=== PATIENT | female | born 1945 | race Caucasian/White ===

== ENCOUNTER 2017-07-02 18:46 | Inpatient (IN) | payer OTHER, MEDICARE, BC ==
[~2017-07-02] VITALS: Ht 175.3 cm; Wt 95.4 kg
[~2017-07-02 18:46] MED LIST: ENAL10TA7 PO; GLUCTAB PO; METO25 PO; NOVOLOGP2 SC; PERC5TAB12 PO; VITA500015 PO; XARE10TA PO
[2017-07-02] MEDS ORDERED: IOHEXOL 350 MG/ML 10 ML VIAL (for RAD DIAG) IVCONTRAST ONE (18:47)
[2017-07-02 19:30] VITALS: BP 160/77; PULSE 78; RESP 18; TEMP 97.2; TEMP 98.2; O2SAT 99
[2017-07-02 19:45] VITALS: O2SAT 98
[2017-07-02] MEDS ORDERED: ceFAZolin 2 GM PREMIX 50 ML IV ONE (19:45)
[2017-07-02] MEDS ORDERED: HYDROmorphone HCL PF 0.5 MG/0.5 ML SYRINGE IV PUSH ONE ×2 (19:45→20:15)
[2017-07-02] MEDS ORDERED: DIPHTH/TETANUS/ACEL PERTUSSIS (BOOSTER) 0.5 ML VIAL/PFS IM ONE (19:45)
[2017-07-02] MEDS ORDERED: ONDANSETRON HCL 4 MG/2 ML VIAL IV PUSH ONE (19:45)
[2017-07-02] MEDS ORDERED: SODIUM CHLORIDE 0.9% FLUSH 10 ML FLUSH IVF PRN (19:45)
[2017-07-02] MEDS ORDERED: SODIUM CHLORID 0.9% 500 ML INJ 500 ML IV ONE (19:45)
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
[2017-07-02 20:08] LABS: I-STAT POTASSIUM 4.7 MMOL/L (3.5-4.9); I-STAT SODIUM 139 MMOL/L (138-146)
[2017-07-02 20:10] LABS: AUTOMATED NEUTROPHIL # 25.2 TH/MM3 (1.8-7.7); BASOPHIL # 0.2 TH/MM3 (0-0.2); BASOPHIL % 0.5 % (0.0-2.0); EOSINOPHIL # 0.1 TH/MM3 (0-0.4); EOSINOPHIL % 0.4 % (0.0-4.0); HEMATOCRIT 37.4 % (35.0-46.0); LYMPH % 9.9 % (9.0-44.0); MEAN CELL VOLUME 86.9 FL (80.0-100.0); MEAN CORPUSCULAR HEMOGLOBIN 28.3 PG (27.0-34.0); MEAN CORPUSCULAR HGB CONC 32.6 % (32.0-36.0); MONO % 6.6 % (0.0-8.0); NEUT % 82.6 % (16.0-70.0); PLATELET COUNT 466 TH/MM3 (150-450); RED CELL DISTRIBUTION WIDTH 14.3 % (11.6-17.2); WHITE BLOOD COUNT 30.5 TH/MM3 (4.0-11.0)
[2017-07-02 20:13] LABS: HEMO FLAGS AUTO DIFF
[2017-07-02 20:25] LABS: ALCOHOL LESS THAN 3 MG/DL (0-5); BETA HCG QUANT LESS THAN 1 MIU/ML (0-5)
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
[2017-07-02 20:41] LABS: PLATELET ESTIMATE SMEAR NORMAL (NORMAL); PLATELET MORPHOLOGY NORMAL (NORMAL); SCAN/DIFF AUTO DIFF CONFIRMED
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
[2017-07-02 21:00] VITALS: BP 223/106; PULSE 112; RESP 20; O2SAT 99
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
[2017-07-02] MEDS ORDERED: SODIUM CHLOR 0.9% 1000 ML INJ 1,000 ML IV SCH (22:36)
[2017-07-02] MEDS ORDERED: BISACODYL 10 MG SUPP RECTAL PRN (22:45)
[2017-07-02] MEDS ORDERED: HYDROmorphone HCL PF 1 MG/ML VIAL IV PUSH PRN ×2 (22:45)
[2017-07-02] MEDS ORDERED: cloNIDine HCL 0.1 MG TAB PO PRN (22:45)
[2017-07-02] MEDS ORDERED: SODIUM CHLORIDE 0.9% FLUSH 10 ML FLUSH IV FLUSH PRN (22:45)
[2017-07-02] MEDS ORDERED: ACETAMINOPHEN 325 MG TAB PO PRN (22:45)
[2017-07-02] MEDS ORDERED: NALOXONE HCL 0.4 MG/ML AMP IV PUSH PRN (22:45)
[2017-07-02] MEDS: HYDROmorphone HCL PF 1 MG/ML VIAL IV PUSH PRN (23:37)
[2017-07-02 23:39] VITALS: BP 200/91; PULSE 107
[2017-07-03] VITALS (10 sets, daily range): BP systolic 122–155; BP diastolic 60–98; PULSE 73–99; RESP 16–18; TEMP 96.7–98.4; O2SAT 93–99
[2017-07-03] MEDS ORDERED: ATOR10TA15 PO (00:54)
[2017-07-03] MEDS ORDERED: METO25TA3 PO (00:54)
[2017-07-03] MEDS ORDERED: NOVOLOGP2 SQ (00:54)
[2017-07-03 01:16] LABS: APTT (PATIENT) 25.9 SEC (24.3-30.1); INTERNATIONAL NORMALIZED RATIO 0.9 RATIO; PROTHROMBIN TIME - PATIENT 10.4 SEC (9.8-11.6)
[2017-07-03] MEDS ORDERED: METOPROLOL TARTRATE 25 MG TAB PO PRN (02:00)
[2017-07-03] MEDS ORDERED: INSULIN HUMAN REGULAR 1,000 UNITS/10 ML VIAL SQ PRN (02:00)
[2017-07-03] MEDS ORDERED: LACTATED RINGER'S 1000 ML IV PRN (02:00)
[2017-07-03] MEDS ORDERED: SODIUM CHLORID 0.9% 500 ML IV PRN (02:00)
[2017-07-03] MEDS ORDERED: CHLORHEXIDINE GLUCONATE 2 % 1 PACK (2 CLOTHS) TOPICAL PRN (02:00)
[2017-07-03] MEDS ORDERED: POVIDONE IODINE 5% (ANTISEPSIS KIT) 4 APPLICATIONS EACH NARE PRN (02:00)
[2017-07-03] MEDS: ONDANSETRON HCL 4 MG/2 ML VIAL IVP PRN ×2 (02:42→07:34)
[2017-07-03] MEDS: HYDROmorphone HCL PF 1 MG/ML VIAL IV PUSH PRN (02:43)
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
[2017-07-03] MEDS ORDERED: TRANEXAMIC ACID IV SCH (08:00)
[2017-07-03] MEDS ORDERED: SODIUM CHLORIDE 0.9% IV SCH (08:00)
[2017-07-03] MEDS ORDERED: HEPARIN SODIUM - SQ 10,000 UNITS/ML VIAL ONE (08:15)
[2017-07-03] MEDS ORDERED: VANCOMYCIN HCL 1000 MG VIAL ONE (08:15)
[2017-07-03] MEDS ORDERED: SODIUM CHLOR 0.9% 250 ML INJ 250 ML ONE (08:16)
[2017-07-03] MEDS ORDERED: GENTAMICIN SULFATE 80 MG/2 ML VIAL ONE (08:16)
[2017-07-03] MEDS: SODIUM CHLORIDE 0.9% FLUSH 10 ML FLUSH IV FLUSH SCH ×2 (09:00→20:27)
[2017-07-03] MEDS: DOCUSATE SODIUM 50 MG/SENNA 8.6 MG TAB PO SCH ×2 (09:00→20:28)
[2017-07-03] MEDS ORDERED: ceFAZolin 2 GM PREMIX 50 ML ONE (09:50)
[2017-07-03] MEDS ORDERED: PROPOFOL 500 MG/50 ML INJ 100 ML ONE (09:56)
[2017-07-03] MEDS ORDERED: BACITRACIN TOP OINT 15 GM TUBE ONE (10:09)
[2017-07-03] MEDS ORDERED: HYDR-3583 PO (11:43)
[2017-07-03] MEDS ORDERED: CALCTAB19 PO (11:43)
[2017-07-03] MEDS ORDERED: WALKER/ADULT/FO1 MIS (11:43)
[2017-07-03] MEDS ORDERED: ERGO1CAP30 PO (11:43)
[2017-07-03] MEDS ORDERED: XARE10TA PO (11:43)
[2017-07-03] MEDS ORDERED: VITA2000 PO (11:43)
[2017-07-03] MEDS ORDERED: WHEEMIS3 (11:43)
[2017-07-03] MEDS ORDERED: ACETAMINOPHEN 1000 MG/100 ML 100 ML IV ONE (12:11)
[2017-07-03] MEDS ORDERED: MORPHINE SULFATE 4 MG/ML INJ IV PUSH PRN (12:15)
[2017-07-03] MEDS ORDERED: NALOXONE HCL 0.4 MG/ML AMP IV PUSH PRN (12:15)
[2017-07-03] MEDS ORDERED: ACETAMINOPHEN/HYDROcodone 325 MG/10 MG TAB PO PRN (12:15)
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
[2017-07-03] MEDS ORDERED: DO NOT ADM ANY ANTICOAGULANT DRUGS PRN (12:35)
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
[2017-07-03] MEDS: LACTATED RINGER'S 1000 ML INJ 1,000 ML IV SCH ×2 (15:00→22:59)
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
[2017-07-03] MEDS ORDERED: ERGOCALCIFEROL (VIT D2) 50,000 UNIT CAP PO SCH (17:00)
[2017-07-03] MEDS: ceFAZolin 2 GM PREMIX 50 ML IV SCH (17:44)
[2017-07-03] MEDS: ATORVASTATIN 10 MG TAB PO SCH (20:27)
[2017-07-03] MEDS: METOPROLOL TARTRATE 25 MG TAB PO SCH (20:28)
[2017-07-03] MEDS: LOW DOSE INSULIN NOVOLOG SUPPLEMENTAL SCALE SQ SCH (20:29)
[2017-07-03] MEDS ORDERED: PLEASE DISCONTINUE PREVIOUS SUPPLEMENTAL SCALE INSULIN ORDERS ONE (20:30)
[2017-07-03] MEDS ORDERED: GLUCAGON 1 MG/ML VIAL OTHER PRN (20:30)
[2017-07-03] MEDS ORDERED: DEXTROSE 50% IN WATER 50 ML VIAL(D50) IV PUSH PRN (20:30)
[2017-07-03] MEDS: LORazepam 2 MG/ML VIAL IV PUSH PRN (22:59)
[2017-07-03] MEDS: VANCOMYCIN INJ 1,000 MG in SODIUM CHLOR 0.9% 250 ML INJ 250 ML IV SCH (22:59)
[2017-07-04] MEDS ORDERED: LISI-519 PO (00:51)
[2017-07-04] MEDS ORDERED: AMLO10TA2 PO (00:57)
[2017-07-04] MEDS: ceFAZolin 2 GM PREMIX 50 ML IV SCH ×3 (02:44→17:41)
[2017-07-04 04:38] VITALS: BP 135/64; PULSE 84; RESP 18; TEMP 98.7; O2SAT 97
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
[2017-07-04 08:00] VITALS: BP 137/66; PULSE 89; RESP 18; TEMP 98.7; O2SAT 96
[2017-07-04 08:26] LABS: HEMATOCRIT 23.9 % (35.0-46.0); MEAN CELL VOLUME 85.6 FL (80.0-100.0); MEAN CORPUSCULAR HEMOGLOBIN 28.9 PG (27.0-34.0); MEAN CORPUSCULAR HGB CONC 33.8 % (32.0-36.0); PLATELET COUNT 303 TH/MM3 (150-450); RED CELL DISTRIBUTION WIDTH 13.6 % (11.6-17.2); REVIEW FLAG FINAL; WHITE BLOOD COUNT 11.8 TH/MM3 (4.0-11.0)
[2017-07-04] MEDS: CHOLECALCIFEROL (VIT D3) 1000 UNIT TAB PO SCH (08:54)
[2017-07-04] MEDS: LOW DOSE INSULIN NOVOLOG SUPPLEMENTAL SCALE SQ SCH ×4 (08:54→20:56)
[2017-07-04] MEDS: SODIUM CHLORIDE 0.9% FLUSH 10 ML FLUSH IV FLUSH SCH ×2 (08:55→20:53)
[2017-07-04] MEDS: METOPROLOL TARTRATE 25 MG TAB PO SCH ×3 (08:55→20:53)
[2017-07-04] MEDS: DOCUSATE SODIUM 50 MG/SENNA 8.6 MG TAB PO SCH ×2 (08:55→20:55)
[2017-07-04 08:59] LABS: BICARBONATE 23.6 MEQ/L (21.0-32.0); POTASSIUM 4.2 MEQ/L (3.5-5.1)
[2017-07-04] MEDS: LORazepam 2 MG/ML VIAL IV PUSH PRN ×2 (09:08→20:55)
[2017-07-04] MEDS: VANCOMYCIN INJ 1,000 MG in SODIUM CHLOR 0.9% 250 ML INJ 250 ML IV SCH ×2 (10:36→23:57)
[2017-07-04 11:43] VITALS: BP 140/69; PULSE 90; RESP 18; TEMP 95.9; O2SAT 94
[2017-07-04] MEDS: ENOXAPARIN SODIUM 30 MG/0.3 ML SYRINGE SQ SCH ×2 (12:13→23:56)
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
[2017-07-04] MEDS ORDERED: oxyCODONE/ACETAMINOPHEN 7.5 MG/325 MG TAB PO PRN (14:00)
[2017-07-04] MEDS ORDERED: oxyCODONE/ACETAMINOPHEN 10 MG/325 MG TAB PO PRN (14:00)
--- NOTE | 2017-07-04 14:29 | EKG ---
Date Performed: 07/02/2017 Time Performed: 23:25:52 PTAGE: 72 years EKG: SINUS TACHYCARDIA LOW QRS VOLTAGE IN PRECORDIAL LEADS POSSIBLE ANTERIOR MYOCARDIAL INFARCTI ON ABNORMAL ECG PREVIOUS TRACING : 01/11/2002 08.41 DOCTOR: Alfonzo Kasper Interpretating Date/Time 07/04/2017 14:21:20
[2017-07-04 15:30] VITALS: BP 147/66; PULSE 100; RESP 16; TEMP 97.6; O2SAT 96
[2017-07-04] MEDS: HYDROmorphone HCL PF 1 MG/ML VIAL IV PUSH PRN (15:51)
[2017-07-04] MEDS: INSULIN HUMAN REGULAR 1,000 UNITS/10 ML VIAL SQ SCH ×2 (17:42→20:56)
[2017-07-04 19:24] VITALS: BP 149/70; PULSE 98; RESP 16; TEMP 97.4; O2SAT 96
[2017-07-04 19:42] VITALS: O2SAT 95
[2017-07-04] MEDS: ATORVASTATIN 10 MG TAB PO SCH (20:53)
[2017-07-04] MEDS: LACTATED RINGER'S 1000 ML INJ 1,000 ML IV SCH (21:31)
[2017-07-05] VITALS: BP 156/87; PULSE 94; RESP 17; TEMP 99.2; O2SAT 93
[2017-07-05] MEDS: ceFAZolin 2 GM PREMIX 50 ML IV SCH ×3 (02:47→16:09)
[2017-07-05] MEDS: LACTATED RINGER'S 1000 ML INJ 1,000 ML IV SCH ×2 (05:25→08:26)
[2017-07-05] MEDS: HYDROmorphone HCL PF 1 MG/ML VIAL IV PUSH PRN ×3 (05:43→19:53)
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
[2017-07-05 08:00] VITALS: BP 154/64; PULSE 95; RESP 20; TEMP 99; O2SAT 96
[2017-07-05] MEDS: SENNOSIDES 8.6 MG TAB PO PRN ×2 (08:19→20:10)
[2017-07-05] MEDS: MAGNESIUM HYDROXIDE SUSP 30 ML CUP PO PRN (08:19)
[2017-07-05] MEDS: METOPROLOL TARTRATE 25 MG TAB PO SCH ×2 (08:19→19:54)
[2017-07-05] MEDS: CHOLECALCIFEROL (VIT D3) 1000 UNIT TAB PO SCH (08:19)
[2017-07-05] MEDS: DOCUSATE SODIUM 50 MG/SENNA 8.6 MG TAB PO SCH ×2 (08:19→19:54)
[2017-07-05] MEDS: SODIUM CHLORIDE 0.9% FLUSH 10 ML FLUSH IV FLUSH SCH ×2 (08:20→19:58)
[2017-07-05] MEDS: ACETAMINOPHEN/HYDROcodone 325 MG/10 MG TAB PO PRN ×3 (08:21→18:43)
[2017-07-05] MEDS: LOW DOSE INSULIN NOVOLOG SUPPLEMENTAL SCALE SQ SCH ×4 (08:27→23:16)
[2017-07-05] MEDS: INSULIN HUMAN REGULAR 1,000 UNITS/10 ML VIAL SQ SCH ×4 (08:28→23:16)
[2017-07-05] MEDS: VANCOMYCIN INJ 1,000 MG in SODIUM CHLOR 0.9% 250 ML INJ 250 ML IV SCH (11:53)
[2017-07-05] MEDS: ONDANSETRON HCL 4 MG/2 ML VIAL IVP PRN ×2 (11:53→17:21)
[2017-07-05 12:00] VITALS: BP 129/58; PULSE 76; RESP 18; TEMP 98.8; O2SAT 94
[2017-07-05] MEDS: ENOXAPARIN SODIUM 30 MG/0.3 ML SYRINGE SQ SCH ×2 (12:04→23:26)
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
[2017-07-05] MEDS ORDERED: CEFUROXIME AXETIL 500 MG TAB PO SCH (12:30)
[2017-07-05] MEDS ORDERED: guaiFENesin SOLUTION 200 MG/10 ML CUP PO PRN (12:30)
[2017-07-05] MEDS: AZITHROMYCIN 250 MG TAB PO SCH (14:05)
[2017-07-05 14:33] VITALS: O2SAT 94
[2017-07-05 16:00] VITALS: BP 142/75; PULSE 84; RESP 18; TEMP 99.4; O2SAT 92
[2017-07-05] MEDS: ATORVASTATIN 10 MG TAB PO SCH (19:54)
[2017-07-05 20:00] VITALS: BP 141/68; PULSE 82; RESP 16; TEMP 99; O2SAT 98
[2017-07-05] MEDS: LACTULOSE SYRUP 20 GM/30 ML CUP PO PRN (20:10)
[2017-07-05] MEDS: LORazepam 2 MG/ML VIAL IV PUSH PRN (23:26)
[2017-07-06] VITALS: BP 139/63; PULSE 84; RESP 17; TEMP 98.6; O2SAT 93
[2017-07-06] MEDS: ceFAZolin 2 GM PREMIX 50 ML IV SCH ×2 (02:56→08:25)
[2017-07-06] MEDS: LACTATED RINGER'S 1000 ML INJ 1,000 ML IV SCH ×2 (03:00→10:23)
[2017-07-06] MEDS: HYDROmorphone HCL PF 1 MG/ML VIAL IV PUSH PRN (03:32)
[2017-07-06 04:00] VITALS: BP 141/64; PULSE 87; RESP 16; TEMP 98.9; O2SAT 96
[2017-07-06 07:35] VITALS: BP 142/68; PULSE 89; RESP 19; TEMP 99.8; O2SAT 97
[2017-07-06] MEDS: CHOLECALCIFEROL (VIT D3) 1000 UNIT TAB PO SCH (08:24)
[2017-07-06] MEDS: DOCUSATE SODIUM 50 MG/SENNA 8.6 MG TAB PO SCH (08:24)
[2017-07-06] MEDS: LACTULOSE SYRUP 20 GM/30 ML CUP PO PRN (08:24)
[2017-07-06] MEDS: SODIUM CHLORIDE 0.9% FLUSH 10 ML FLUSH IV FLUSH SCH (08:24)
[2017-07-06] MEDS: SENNOSIDES 8.6 MG TAB PO PRN (08:24)
[2017-07-06] MEDS: AZITHROMYCIN 250 MG TAB PO SCH (08:24)
[2017-07-06] MEDS: METOPROLOL TARTRATE 25 MG TAB PO SCH (08:24)
[2017-07-06] MEDS: MAGNESIUM HYDROXIDE SUSP 30 ML CUP PO PRN (08:24)
[2017-07-06] MEDS: ACETAMINOPHEN/HYDROcodone 325 MG/10 MG TAB PO PRN ×3 (08:25→16:17)
[2017-07-06] MEDS: INSULIN HUMAN REGULAR 1,000 UNITS/10 ML VIAL SQ SCH ×2 (08:25→13:03)
[2017-07-06] MEDS: LOW DOSE INSULIN NOVOLOG SUPPLEMENTAL SCALE SQ SCH ×2 (08:29→12:00)
[2017-07-06 08:34] LABS: HEMATOCRIT 24.3 % (35.0-46.0); MEAN CORPUSCULAR HEMOGLOBIN 29.8 PG (27.0-34.0); MEAN CORPUSCULAR HGB CONC 34.2 % (32.0-36.0); PLATELET COUNT 336 TH/MM3 (150-450); RED BLOOD COUNT 2.79 MIL/MM3 (4.00-5.30); RED CELL DISTRIBUTION WIDTH 13.7 % (11.6-17.2); REVIEW FLAG FINAL; WHITE BLOOD COUNT 9.9 TH/MM3 (4.0-11.0)
[2017-07-06 09:20] LABS: POTASSIUM 4.5 MEQ/L (3.5-5.1)
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
[2017-07-06] MEDS ORDERED: AZIT250T3 PO (10:54)
[2017-07-06] MEDS: ONDANSETRON HCL 4 MG/2 ML VIAL IVP PRN (10:55)
[2017-07-06 11:40] VITALS: BP 155/79; PULSE 91; RESP 19; TEMP 99.3; O2SAT 95
[2017-07-06 12:18] VITALS: O2SAT 93
[2017-07-06] MEDS: ENOXAPARIN SODIUM 30 MG/0.3 ML SYRINGE SQ SCH (13:03)
== END 2017-07-06 16:45 | DRG 481 ==
LOC: NEPC 18:46 → NEDA 22:10 → N06A 07-03 01:35
PROVIDERS: ADMIT Specialist; ATTEND Specialist
PROC: 2W6PX0Z Traction of Left Upper Leg using Traction Apparatus (ICD-10-PCS; 2017-07-02)
PROC: 0QS504Z Reposition Left Acetabulum with Internal Fixation Device, Open Approach (ICD-10-PCS; 2017-07-03)
PROC: 0QU Lower Bones, Supplement (ICD-10-PCS; 2017-07-03)
PROC: 0SSB0ZZ Reposition Left Hip Joint, Open Approach (ICD-10-PCS; principal; 2017-07-03 09:54)
DX: S32.492A Other specified fracture of left acetabulum, initial encounter for closed fracture (principal); S73.005A Unspecified dislocation of left hip, initial encounter; Z47.89 Encounter for other orthopedic aftercare; V47.1XXA Car passenger injured in collision with fixed or stationary object in nontraffic accident, initial encounter; Y92.410 Unspecified street and highway as the place of occurrence of the external cause; E11.9 Type 2 diabetes mellitus without complications; Z79.84 Long term (current) use of oral hypoglycemic drugs; Z79.4 Long term (current) use of insulin; I10 Essential (primary) hypertension; D62 Acute posthemorrhagic anemia; M17.12 Unilateral primary osteoarthritis, left knee; M81.0 Age-related osteoporosis without current pathological fracture; Z96.652 Presence of left artificial knee joint; N28.9 Disorder of kidney and ureter, unspecified; J40 Bronchitis, not specified as acute or chronic
CPT/HCPCS: 36430; 70450; 71010; 71260; 72125; 72128; 72131; 72190; 73501; 73560; 74177; 76000; 80048; 80307; 82435; 82565; 82947; 82948; 84132; 84295; 84520; 84702; 85025; 85027; 85384; 85610; 85730; 86850; 86900; 86901; 86920; 90715; 93005; 94150; J1170; J0131; J0690; J1580; J1644; J1650; J1815; J2060; J2405; J3370; J7030; J7040; J7050; J7120; P9016; Q9967